=== PATIENT | male | born 1960 | race African-American/Black ===

== ENCOUNTER 2023-01-18 23:01 | Emergency (ER) | payer OTHER ==
[~2023-01-18] VITALS: Ht 170.2 cm; Wt 61.2 kg
[2023-01-18] MEDS ORDERED: ASPIRIN 81 MG TAB.CHEW ONE (23:11)
[2023-01-18] MEDS: ASPIRIN 81 MG TAB.CHEW PO ONE ×2 (23:12→23:13)
--- NOTE | 2023-01-18 23:14 | NUR ---
Patient refused Aspirin 162mg. Patient stated no allergy to aspirin but "someone" told him he can't take the medication.
--- NOTE | 2023-01-18 23:20 | NUR ---
Dr Sanchez at bedside MSE in progress
[2023-01-18 23:32] LABS: HEMATOCRIT 44.9 % (36.7-47.1); MEAN CORPUSCULAR HEMOGLOBIN 34.8 uug (23.8-33.4); MEAN CORPUSCULAR VOLUME 102.1 fL (73.0-96.2); PLATELET COUNT (AUTO) 274 K/uL (152-348)
[2023-01-18 23:52] LABS: CARBON DIOXIDE 27 mmol/L (21-32); CHLORIDE 106 mmol/L (98-107); CREATININE 0.6 mg/dL (0.6-1.3); GLUCOSE 117 mg/dL (74-106); POTASSIUM 3.6 mmol/L (3.5-5.1); UREA NITROGEN, BLOOD 5 mg/dL (7-18)
--- NOTE | 2023-01-19 02:07 | NUR ---
IV removed. Catheter intact and site benign. Pressure and 4x4 gauze applied to site. No bleeding noted.
[2023-01-19 02:38] VITALS: BP 131/75
--- NOTE | 2023-01-19 02:38 | NUR ---
Patient discharged to home in stable condition. Written and verbal after care instructions given. Patient verbalizes understanding of instructions. Stressed follow up or return to ER for worsening s/s. Patient is a/ox4, NAD noted. patient ambulated with a cane. accompanied by his brother
== END 2023-01-19 02:39 | disposition home or self-care (01) ==
LOC: EDSEX 23:04 → ER 23:04
DX: R07.89 Other chest pain (principal); F17.210 Nicotine dependence, cigarettes, uncomplicated; Z71.6 Tobacco abuse counseling; Z88.6 Allergy status to analgesic agent
CPT/HCPCS: 36415; 71045; 83735; 84484; 85025; 85730; 93005; A4663